=== PATIENT | female | born 1990 | race Caucasian/White ===

== ENCOUNTER 2025-05-04 07:38 | Outpatient (CLI) | payer BC | END 2025-05-04 07:39 | disposition home or self-care (01) | LOC: SCSRAD 07:38 | PROVIDERS: ATTEND Nurse Practitioner Adult Health | DX: K83.01 Primary sclerosing cholangitis (principal); N28.1 Cyst of kidney, acquired; R16.0 Hepatomegaly, not elsewhere classified | CPT/HCPCS: 74183; 76376; A9577 ==